=== PATIENT | male | born 1950 | race Caucasian/White ===

== ENCOUNTER → 2019-05-05 | Outpatient (CLI) | payer MEDICARE, BC ==
--- NOTE | 2019-05-07 16:25 | MRI ---
EXAM DESCRIPTION: Lumbar Spine w/o Contrast : Magnetic Resonance Imaging. CLINICAL HISTORY: RADICULOPATHY COMPARISON: None. TECHNIQUE: Multiplanar, multiple standard sequences, non contrast MRI, lumbar spine. FINDINGS: L5-S1: The disc is well visualized on axial T2 series 501, image 3. Minimal disc desiccation with disc space maintained. Tiny posterior midline bulge. Moderate narrowing right foramen and moderate to severe left foraminal narrowing. Bilateral degenerative hypertrophy of the facet joints and posterior flavum ligaments. AP canal diameter 11 mm. L4-L5: Disc desiccation with disc space maintained. Posterior midline hyperintense T2 annular fissure with bulge against the thecal sac. Bilateral degenerative hypertrophic changes in the posterior elements with AP canal diameter 12 mm. Moderate narrowing of the right foramen and moderate to severe narrowing left foramen. L3-L4: Disc space maintained with minimal disc degeneration. No significant bulging. Bilateral hypertrophic degenerative changes in the posterior elements with narrowing of the posterior canal and AP canal diameter 10 mm. Moderate severe right foraminal narrowing and mild to moderate left foraminal narrowing. L2-L3: Disc desiccation with disc space maintained. Anterior mild bulging. Degenerative hypertrophy of the posterior elements impressing on the thecal sac and narrowing the posterior canal. AP canal diameter 10 mm. Bilateral mild foraminal narrowing. L1-L2: Disc desiccation with disc space maintained. Intimal anterior bulging. Minimal degenerative hypertrophy of the posterior ligaments. Mild canal narrowing. Bilateral mild foraminal narrowing. T12-L1: Disc desiccation with disc space maintained. Anterior endplate reactive changes with endplate ridging and bulging disc. Posterior elements unremarkable. Canal and foramina are patent. Conus terminates at this level. No significant scoliosis. Paravertebral soft tissues are unremarkable. Distal cord normal signal and caliber. Otherwise normal marrow signal in the remaining vertebral bodies and the posterior elements. Vertebral bodies are not compressed at any level. IMPRESSION: 1. Multiple discs are desiccated with minimal bulging except for L4-L5. Multilevel degenerative hypertrophy of the posterior flavum ligaments and facet joints. Minimal spondylosis at some levels. 2. Tiny posterior midline L5-S1 disc bulge. Moderate to severe left foraminal narrowing. Multifactorial moderate to severe central canal stenosis. 3. Posterior broad-based L4-5 disc bulge with posterior midline annular fissure and disc desiccation. Moderate to severe left foraminal narrowing. Correlate for left L4 radiculopathy. 4. Multifactorial borderline mild central canal stenosis L3-L4 with moderate to severe right foraminal narrowing. Correlate for right L3 radiculopathy. 5. Degenerative hypertrophy of the posterior elements with borderline mild central canal stenosis. Bilateral mild foraminal narrowing. Electronically signed by: John Lama MD 05/07/2019 4:23 PM [facility]
== END ==
LOC: MRI 10:54
PROVIDERS: ATTEND Internal Medicine
DX: M51.16 Intervertebral disc disorders with radiculopathy, lumbar region (principal); M51.17 Intervertebral disc disorders with radiculopathy, lumbosacral region; M47.26 Other spondylosis with radiculopathy, lumbar region; M48.062 Spinal stenosis, lumbar region with neurogenic claudication